=== PATIENT | female | born 1970 | race Caucasian/White ===

== ENCOUNTER 2016-10-09 09:38 | Emergency (ER) | payer BC ==
[~2016-10-09 09:38] MED LIST: DOXYCYCLINE MO100 MG PO; ESTROGEL0.06% T; MEDROL DOSEPAK4 MG PO; PROTONIX20 MG PO; XOPENEX HF0.045 MG/A IH
[2016-10-09] MEDS ORDERED: CYCLOBENZAPRINE10 MG PO (13:27)
[2016-10-09] MEDS ORDERED: HYDROCODONE BIT1 T11 PO (13:27)
== END 2016-10-09 13:31 | disposition home or self-care (01) ==
LOC: ED 09:38
DX: G44.209 Tension-type headache, unspecified, not intractable (principal); M54.2 Cervicalgia; R11.10 Vomiting, unspecified; Z88.6 Allergy status to analgesic agent; Z79.899 Other long term (current) drug therapy

== ENCOUNTER → 2016-12-15 | Outpatient (CLI) | payer BC ==
[~2016-12-15] MED LIST changes: +CYCLOBENZAPRINE10 MG PO; +HYDROCODONE BIT1 T11 PO
== END | disposition home or self-care (01) ==
LOC: MAMMO 08:54
DX: R92.2 Inconclusive mammogram (principal)

== ENCOUNTER 2025-04-18 09:32 | Inpatient (IN) | payer OTHER ==
[~2025-04-18] VITALS: Ht 149.9 cm; Wt 58.1 kg
[2025-04-18 09:37] VITALS: BP 87/50
[2025-04-18 09:56] LABS: BASO # 0.1 10*3/uL (0.0-0.1); BASO % 0.7 % (0.0-1.0); EOS # 0.3 10*3/uL (0.0-0.4); EOS % 2.0 % (1.0-4.0); MEAN CELL VOLUME 88.5 fl (81.0-99.0); MEAN CORPUSCULAR HGB 28.5 pg (27.0-31.0); MEAN PLATELET VOLUME 9.6 fl (9.6-12.3); MONO # 0.8 10*3/uL (0.1-1.0); MONO % 6.2 % (3.0-9.0); NEUT # 6.9 10*3/uL (2.3-7.9); NEUT % 53.0 % (47.0-73.0); NUCLEATED RED BLOOD CELL 0.0 % (0.0-0.0); NUCLEATED RED BLOOD CELL 0.0 10*3/uL (0.0-0.0); PLATELET COUNT AUTOMATED 417 10*3/uL (130-400); RED CELL DISTRI WIDTH 13.7 % (0-14.5)
[2025-04-18 10:00] VITALS: BP 105/48
[2025-04-18] MEDS ORDERED: ADENOSINE 6 MG/2 ML VIAL IV ONE (10:06)
[2025-04-18] MEDS ORDERED: SODIUM CHLORIDE 0.9% 1,000 ML IV ONE ×2 (10:06→10:25)
[2025-04-18] MEDS ORDERED: VALSARTAN160 MG PO (10:07)
[2025-04-18] MEDS ORDERED: OXYBUTYNIN10 MG PO (10:08)
[2025-04-18 10:13] LABS: ACT PARTIAL THROMBO TIME 25.9 SECONDS (20.0-32.1)
[2025-04-18 10:16] LABS: BUN 16.0 mg/dl (9-23); SGPT/ALT 18.0 U/L (5-49)
[2025-04-18] MEDS ORDERED: METOPROLOL SUCCINATE XR 25 MG TAB PO ONE (10:20)
[2025-04-18 10:38] LABS: FREE T4 1.96 ng/dl (0.89-1.76)
[2025-04-18] MEDS ORDERED: ACETAMINOPHEN 325 MG TAB PO ONE (11:20)
[2025-04-18 11:31] VITALS: BP 116/69
[2025-04-18 13:19] VITALS: BP 117/78
[2025-04-18] MEDS ORDERED: ACETAMINOPHEN 325 MG TAB PO PRN (14:00)
[2025-04-18] MEDS ORDERED: BISACODYL 5 MG TAB PO PRN (14:00)
[2025-04-18] MEDS ORDERED: Ondansetron Hydrochloride 4 MG/2 ML VIAL IV PRN (14:00)
[2025-04-18] MEDS ORDERED: ASPIRIN, CHEWABLE 81 MG TAB PO ONE ×2 (14:05→19:10)
[2025-04-18] MEDS ORDERED: HEPARIN SODIUM 250 ML IV SCH (14:05)
[2025-04-18 14:10] VITALS: BP 136/85
[2025-04-18] MEDS ORDERED: SODIUM CHLORIDE 0.9% 100 ML BAG IV ONE (15:25)
[2025-04-18] MEDS ORDERED: IOHEXOL 350 MG/ML 100 ML VIAL IV ONE (15:25)
[2025-04-18 20:00] VITALS: BP 141/98
[2025-04-18] MEDS ORDERED: ATORVASTATIN CALCIUM 40 MG TABLET PO SCH (22:00)
[2025-04-19] VITALS: BP 117/79
[2025-04-19 08:00] VITALS: BP 147/92
[2025-04-19 08:06] LABS: BASO # 0.1 10*3/uL (0.0-0.1); BASO % 0.8 % (0.0-1.0); EOS # 0.2 10*3/uL (0.0-0.4); EOS % 2.1 % (1.0-4.0); MEAN CELL VOLUME 87.9 fl (81.0-99.0); MEAN CORPUSCULAR HGB 28.3 pg (27.0-31.0); MEAN PLATELET VOLUME 9.4 fl (9.6-12.3); MONO # 0.5 10*3/uL (0.1-1.0); MONO % 5.4 % (3.0-9.0); NEUT # 4.8 10*3/uL (2.3-7.9); NEUT % 56.4 % (47.0-73.0); NUCLEATED RED BLOOD CELL 0.0 % (0.0-0.0); NUCLEATED RED BLOOD CELL 0.0 10*3/uL (0.0-0.0); PLATELET COUNT AUTOMATED 309 10*3/uL (130-400); RED CELL DISTRI WIDTH 13.8 % (0-14.5)
[2025-04-19 09:31] LABS: BUN 13 mg/dl (9-23); SGPT/ALT 18 U/L (5-49)
[2025-04-19] MEDS ORDERED: ASPIRIN ENTERIC COATED 81 MG TAB PO SCH (10:00)
[2025-04-19] MEDS ORDERED: METOPROLOL SUCCINATE XR 25 MG TAB PO SCH (10:00)
[2025-04-19 12:00] VITALS: BP 139/87
[2025-04-19] MEDS ORDERED: APIXABAN 5 MG TAB PO SCH (13:15)
[2025-04-19 16:00] VITALS: BP 130/83
[2025-04-19] MEDS ORDERED: ATORVASTATIN CA40 M1 PO (16:56)
[2025-04-19] MEDS ORDERED: ASPIRIN ADULT L81 M2 PO (16:56)
[2025-04-19] MEDS ORDERED: METOPROLOL SUCC25 M2 PO (16:56)
[2025-04-19] MEDS ORDERED: ELIQUIS5 M1 PO (16:56)
== END 2025-04-19 17:47 | disposition home or self-care (01) | DRG 280 ==
LOC: ED 09:32 → EDHOLD 12:13 → 4E 12:13
PROVIDERS: Internal Medicine; ADMIT Internal Medicine; ATTEND Internal Medicine
DX: I48.91 Unspecified atrial fibrillation (principal); N17.0 Acute kidney failure with tubular necrosis; I21.A1 Myocardial infarction type 2; I10 Essential (primary) hypertension; D72.820 Lymphocytosis (symptomatic); D75.839 Thrombocytosis, unspecified; R73.9 Hyperglycemia, unspecified; M54.2 Cervicalgia; K21.9 Gastro-esophageal reflux disease without esophagitis; G44.209 Tension-type headache, unspecified, not intractable; Z88.8 Allergy status to other drugs, medicaments and biological substances; Z79.899 Other long term (current) drug therapy; Z79.01 Long term (current) use of anticoagulants; Z79.2 Long term (current) use of antibiotics; Z82.49 Family history of ischemic heart disease and other diseases of the circulatory system; Z90.49 Acquired absence of other specified parts of digestive tract

== ENCOUNTER 2025-05-06 19:55 | Emergency (ER) | payer OTHER ==
[~2025-05-06] VITALS: Ht 152.4 cm; Wt 58.5 kg
[~2025-05-06 19:55] MED LIST changes: +ASPIRIN ADULT L81 M2 PO; +ATORVASTATIN CA40 M1 PO; +ELIQUIS5 M1 PO; +METOPROLOL SUCC25 M2 PO; +OXYBUTYNIN10 MG PO; +VALSARTAN160 MG PO
== END 2025-05-06 20:56 | disposition home or self-care (01) ==
LOC: ED 19:55
DX: S60.222A Contusion of left hand, initial encounter (principal); R58 Hemorrhage, not elsewhere classified; I10 Essential (primary) hypertension; J45.909 Unspecified asthma, uncomplicated; Z90.49 Acquired absence of other specified parts of digestive tract; Z88.5 Allergy status to narcotic agent; X58.XXXA Exposure to other specified factors, initial encounter; Y93.89 Activity, other specified; Y92.89 Other specified places as the place of occurrence of the external cause; Y99.8 Other external cause status